=== PATIENT | female | born 1985 | race Caucasian/White ===

== ENCOUNTER 2018-12-16 08:49 | Day surgery (SDC) | payer OTHER ==
[2018-12-15 09:17] VITALS: BMI 31.8
--- NOTE | 2018-12-16 09:28 | HP ---
History & Physical Update - History History: No Change - Physical Physical: No Change - Assessment Assessment: No Change - Plan Plan: No Change (H & P done on 11/25/18)
[2018-12-16] MEDS ORDERED: LIDOCAINE HCL 1%, 10 MG/ML (20ML VIAL) ONE (09:36)
[2018-12-16] MEDS ORDERED: LIDOCAINE 1%-EPI 1:100,000 30 ML MDV IJ ONE (09:36)
[2018-12-16] MEDS ORDERED: BUPIVACAINE HCL/PF 0.5% (5MG/ML) 10 ML VIAL ONE (09:36)
[2018-12-16] MEDS ORDERED: PROPOFOL 20 ML ONE ×2 (09:51→10:07)
[2018-12-16] MEDS ORDERED: MIDAZOLAM HCL 2 MG/2 ML SINGLE DOSE VIAL ONE (09:51)
[2018-12-16] MEDS ORDERED: LIDOCAINE HCL/PF 2% SDV 5ML VIAL ONE (10:00)
[2018-12-16] MEDS ORDERED: LIDOCAINE 1%/EPI 1:100000 (50 ML MULTI DOSE VIAL) INF ONE ×2 (10:07)
[2018-12-16] MEDS ORDERED: BENZOIN TINCTURE SWABSTICK TP ONE (10:24)
[2018-12-16] MEDS ORDERED: PROMETHAZINE HCL 25 MG/1 ML VIAL IVPUSH PRN (10:35)
[2018-12-16] MEDS ORDERED: oxyCODONE HCL 5 MG TABLET PO PRN (10:35)
[2018-12-16] MEDS ORDERED: KETOROLAC TROMETHAMINE 30 MG/1 ML VIAL IVPUSH ONE (10:36)
--- NOTE | 2018-12-16 10:39 | OP ---
Operative Note - Note: Operative Date: 12/16/18 Pre-Operative Diagnosis: right upper back sebaceous cyst Operation: Excision of back cyst Findings: 1.5 cm sebaceous cyst Post-Operative Diagnosis: Same as Pre-op Surgeon: Clayton Arauz Anesthesia: MAC Specimens Removed: sebaceous cyst Estimated Blood Loss (mls): 1 Operative Report Dictated: Yes
[2018-12-16] MEDS ORDERED: LACTATED RINGERS SOLUTION 1,000 ML IV SCH (10:45)
[2018-12-16] MEDS ORDERED: KETOROLAC TROMETHAMINE 30 MG/1 ML VIAL ONE (11:03)
--- NOTE | 2018-12-16 11:37 | OP ---
DATE OF OPERATION: 12/16/2018 PROCEDURE: Excision biopsy of right upper back sebaceous cyst. PREOPERATIVE DIAGNOSIS: Right upper back sebaceous cyst. POSTOPERATIVE DIAGNOSIS: Right upper back sebaceous cyst. SURGEON: Clayton Arauz MD ANESTHESIA: Local with sedation. FINDINGS ON PROCEDURE: This is a 33-year-old female who presents with a few month history of a slowly growing cystic mass of the right upper back just above the scapula. On physical examination, patient has a 1.5-cm cystic mass of the said area. So, patient was advised excision biopsy of the mass of the cyst, and consent was obtained after discussing the risks, benefits, and alternatives of the procedure. DESCRIPTION OF PROCEDURE: Patient was brought to the operating room and placed in left lateral decubitus position. Intravenous sedation was given by the anesthesia team. The operative site was prepped and draped in the usual sterile fashion using lidocaine 1% with epinephrine, field block anesthesia was administered. A 2 x 0.5 cm elliptical incision was made using scalpel blade No. 15 with resection carried down to the deep dermis. Further resection using Metzenbaum scissors combined with Bovie cautery was done until the cystic mass together with the ellipse of skin was completely excised down to the subcutaneous layer. The wound was undermined to about 0.5 cm on each side. The wound was closed with interrupted Biosyn 4-0 sutures for the dermis and continuous Biosyn 4-0 suture for the subcuticular layer. The wound closure was reinforced with Steri-Strips and covered with sterile dressing. The patient was transferred to the post-anesthesia care unit in satisfactory condition. ESTIMATED BLOOD LOSS: About 1 mL. WOUND CLASS: Clean. Chinedu [id number]
[2018-12-16 14:09] VITALS: BP 117/71; PULSE 71; TEMP 97.8
--- NOTE | 2018-12-19 19:09 | PATH ---
Surgical Pathology Report Patient Name: JENNIFER ELLSWORTH [facility]. Rec. #: [id number] /Age/Gender: 1985 (Age: 33) / F Account: [id number] Location: [facility] SURGICAL Taken: 12/16/2018 Received: 12/16/2018 Reported: 12/19/2018 Physicians: Clayton Arauz M.D. Specimen(s) Received SEBACEOUS CYST RIGHT UPPER BACK Clinical History Cyst right upper back Final Diagnosis SEBACEOUS CYST, RIGHT UPPER BACK, EXCISION: EPIDERMAL INCLUSION CYST. Electronically Signed Aida Sims M.D. Gross Description Received in formalin labeled "sebaceous cyst right upper back," is a 1.0 x 0.7 x 0.7 cm intact cystic structure which is partially surfaced by a 1.0 x 0.3 cm walter, elliptical, unremarkable portion of skin. The cyst lumen contains walter sebaceous material. The specimen is trisected and entirely submitted in one cassette. /12/17/2018 saudi12/17/2018
== END 2018-12-16 12:30 | disposition home or self-care (01) ==
LOC: JASU-SURG 08:49
PROVIDERS: ATTEND Surgery
PROC: 0HB6XZX Excision of Back Skin, External Approach, Diagnostic (ICD-10-PCS; principal; 2018-12-16 09:30)
DX: L72.3 Sebaceous cyst (principal)
CPT/HCPCS: 84703; 88304-TC; 94760

== ENCOUNTER 2019-08-31 11:19 | Emergency (ER) | payer OTHER ==
[2019-08-31 11:24] VITALS: BP 130/69; PULSE 90; TEMP 98.4; BMI 29.9
[2019-08-31] MEDS ORDERED: guaiFENesin/D-METHORPHAN HB 10 ML UNIT-DOSE CUPS PO ONE (12:42)
[2019-08-31] MEDS ORDERED: IBUPROFEN 600 MG TABLET (FP) PO ONE ×2 (12:42→13:13)
--- NOTE | 2019-08-31 12:43 | PDOC ---
History of Present Illness - General Chief Complaint: Sore Throat Stated Complaint: SORE THROAT Time Seen by Provider: 08/31/19 11:28 History Source: Patient Exam Limitations: No Limitations Past History - Travel Traveled outside of the country in the last 30 days: No Close contact w/someone who was outside of country & ill: No - Past Medical History Allergies/Adverse Reactions: Allergies Allergy/AdvReac Type Severity Reaction Status Date / Time No Known Allergies Allergy Verified 08/31/19 11:24 Home Medications: Ambulatory Orders Acetaminophen [Tylenol] 650 mg PO QID PRN 06/27/18 Levothyroxine [Synthroid -] 125 mcg PO DAILY 06/27/18 Doxycycline Monohydrate [Mondoxyne Nl] 50 mg PO HS 12/15/18 Ibuprofen 800 mg PO TID PRN 12/15/18 Guaifenesin Dm [Robitussin Dm -] 10 ml PO Q6H #200 ml 08/31/19 Ibuprofen 600 mg PO Q6H #30 tablet 08/31/19 Anemia: No Asthma: No Cancer: No Cardiac Disorders: No CVA: No COPD: No CHF: No Dementia: No Diabetes: No GI Disorders: No Disorders: No HTN: No Hypercholesterolemia: No Liver Disease: No Seizures: No Thyroid Disease: Yes (hypo) - Surgical History Abdominal Surgery: No Appendectomy: No Cardiac Surgery: No Cholecystectomy: No Lung Surgery: No Neurologic Surgery: No Orthopedic Surgery: No - Immunization History Immunization Up to Date: Yes - Psycho Social/Smoking Cessation Hx Smoking Status: No Smoking History: Never smoked Have you smoked in the past 12 months: No Number of Cigarettes Smoked Daily: 0 Cigars Per Day: 0 Hx Alcohol Use: No Drug/Substance Use Hx: No Hx Substance Use Treatment: No Review of Systems - Review of Systems Able to Perform ROS?: Yes Comments:: 08/31/19 13:34 CONSTITUTIONAL: Absent: fever, chills, diaphoresis, generalized weakness, malaise, loss of appetite HEENT: Present: Sore throat. Absent: rhinorrhea, nasal congestion, throat pain, throat swelling, difficulty swallowing, mouth swelling, ear pain, eye pain, visual Changes CARDIOVASCULAR: Absent: chest pain, loss of consciousness, palpitations, irregular heart rate, peripheral edema RESPIRATORY: Present: Cough. Absent: cough, shortness of breath, dyspnea with exertion, orthopnea, wheezing, stridor, hemoptysis GASTROINTESTINAL: Absent: abdominal pain, abdominal distension, nausea, vomiting, diarrhea, constipation, melena, hematochezia SKIN: Absent: rash, itching, pallor NEUROLOGIC: Absent: headache, focal weakness or paresthesias, dizziness, unsteady gait, seizure, mental status changes, bladder or bowel incontinence PSYCHIATRIC: Absent: anxiety, depression, suicidal or homicidal ideation, hallucinations. Is the patient limited Afghan proficient: No *Physical Exam - Vital Signs Last Vital Signs Temp Pulse Resp BP Pulse Ox 98.4 F 90 18 130/69 100 08/31/19 11:21 08/31/19 11:21 08/31/19 11:21 08/31/19 11:21 08/31/19 11:21 - Physical Exam 08/31/19 13:36 GENERAL: Well developed, well nourished. Awake and alert. No acute distress. HEENT: Normocephalic, atraumatic. PERRLA, EOMI. No conjunctival pallor. Sclera are non- icteric. Moist mucous membranes. Oropharynx is erythematous. NECK: Supple. Full ROM. No JVD. Carotid pulses 2+ and symmetric, without bruits. No thyromegaly. No lymphadenopathy. CARDIOVASCULAR: Regular rate and rhythm. No murmurs, rubs, or gallops. Distal pulses are 2+ and symmetric. PULMONARY: No evidence of respiratory distress. Lungs clear to auscultation bilaterally. No wheezing, rales or rhonchi. ABDOMINAL: Soft. Non-tender. Non-distended. No rebound or guarding. No organomegaly. Normoactive bowel sounds. MUSCULOSKELETAL Normal range of motion at all joints. No bony deformities or tenderness. No CVA tenderness. EXTREMITIES: No cyanosis. No clubbing. No edema. No calf tenderness. SKIN: Warm and dry. Normal capillary refill. No rashes. No jaundice. NEUROLOGICAL: Alert, awake, appropriate. Cranial nerves 2-12 intact. No deficits to light touch and temperature in face, upper extremities and lower extremities. No motor deficits in the in face, upper extremities and lower extremities. Normoreflexic in the upper and lower extremities. Normal speech. Toes are down- going bilaterally. Gait is normal without ataxia. PSYCHIATRIC: Cooperative. Good eye contact. Appropriate mood and affect. Medical Decision Making - Medical Decision Making 08/31/19 13:38 Patient is 33-year-old female who presents to the ER for cough and sore throat for 2 days. She states that she has not taken any medication for symptoms. Denies fevers, chills, nausea, vomiting, diarrhea. A/P: URI On exam lungs are clear to auscultation bilaterally no wheezes rales or rhonchi. Flu and strep testing is negative Likely a common cold Discharge home with supportive relief Vital signs stable I discussed the physical exam findings, ancillary test results and final diagnoses with the patient. I answered all of the patient's questions. The patient was satisfied with the care received and felt comfortable with the discharge plan and treatment plan. The Patient agrees to follow up with the primary care physician/specialist within 24-72 hours. Return precautions were given. Discharge - Discharge Information Problems reviewed: Yes Clinical Impression/Diagnosis: Upper respiratory infection Qualifiers: URI type: unspecified viral URI Qualified Code(s): J06.9 - Acute upper respiratory infection, unspecified Condition: Stable Disposition: HOME - Admission No - Additional Discharge Information Prescriptions: Guaifenesin Dm [Robitussin Dm -] 10 ml PO Q6H #200 ml Ibuprofen 600 mg PO Q6H #30 tablet - Follow up/Referral Referrals: Vikash Cortez MD [Staff Physician] - - Patient Discharge Instructions Patient Printed Discharge Instructions: DI for Viral Upper Respiratory Infection -- Adult Additional Instructions: You have an upper respiratory infection, or the common cold. Your flu and strep testing was negative today. Please take Motrin 800 mg every 8 hours as needed for pain not to exceed 3000 mg a day. Drink plenty of fluids. Cough drops and warm tea may help your symptoms as well. Please follow up with her primary care doctor this week. Return to the emergency department if you have difficulty breathing, shortness of breath, worsening pain, nausea, vomiting or if you have any changes in your symptoms. - Post Discharge Activity
[2019-08-31] MEDS ORDERED: guaiFENesin/D-METHORPHAN HB 10 ML UNIT-DOSE CUPS ONE (13:14)
== END 2019-08-31 13:39 | disposition home or self-care (01) ==
LOC: JERFT 11:19
DX: J06.9 Acute upper respiratory infection, unspecified (principal); B97.89 Other viral agents as the cause of diseases classified elsewhere; E03.9 Hypothyroidism, unspecified
CPT/HCPCS: 87070; 87804; 87880; 99282-25

== ENCOUNTER 2019-10-21 16:42 | Emergency (ER) | payer OTHER ==
[2019-10-21 17:03] VITALS: BP 92/56; PULSE 95; TEMP 98.8; BMI 29.9
[2019-10-21] MEDS ORDERED: ACETAMINOPHEN 1000 MG/100 ML VIAL (NON FORMULARY) IVPB ONE (17:19)
[2019-10-21] MEDS ORDERED: ONDANSETRON 4 MG/2 ML VIAL IVPUSH ONE ×2 (17:19→19:39)
--- NOTE | 2019-10-21 17:34 | PDOC ---
History of Present Illness - History of Present Illness Initial Comments: 10/21/19 17:13 Patient is a 34y.o female with h/o hypothyroid c/o Nausea, vomiting, diarrhea, fever, bodyache since this morning. States woke up this morning with symptoms. Yesterday son had vomiting and diarrhea, now slightly improved but still continues to vomit so has brought the child here also for evaluation. Her pain is achy 8/10, continuous. Fever is subjective but took Motrin at 1 pm. Has not eaten all day. Also complains of pain on urination x1 day. States she is currently menstruating. PMD: Dr. Bartlett PMHX: As above PSOCHX: neg etoh, drug, cig ALL: NKDA GENERAL/CONSTITUTIONAL: [No fever or chills. No weakness. No weight change.] HEAD, EYES, EARS, NOSE AND THROAT: [No change in vision. No ear pain or discharge. No sore throat.] CARDIOVASCULAR: [No chest pain or shortness of breath.] RESPIRATORY: [No cough, wheezing, or hemoptysis.] GASTROINTESTINAL: [No nausea, vomiting, diarrhea or constipation. No rectal bleeding.] GENITOURINARY: [No dysuria, frequency, or change in urination.] MUSCULOSKELETAL: [No joint or muscle swelling or pain. No neck or back pain.] SKIN AND BREASTS: [No rash or easy bruising.] NEUROLOGIC: [No headache, vertigo, loss of consciousness, or loss of sensation.] PSYCHIATRIC: [No depression or anxiety.] ENDOCRINE: [No increased thirst. No abnormal weight change.] HEMATOLOGIC/LYMPHATIC: [No anemia, easy bleeding, or history of blood clots.] ALLERGIC/IMMUNOLOGIC: [No hives or skin allergy. No latex allergy.] GENERAL: [The patient is awake, alert, and fully oriented, in mild distress.] HEAD: [Normal with no signs of trauma.] EYES: [Pupils equal, round and reactive to light, extraocular movements intact, sclera anicteric, conjunctiva clear.] ENT: [Ears normal, nares patent, oropharynx clear without exudates. Dry mucous membranes.] NECK: [Normal range of motion, supple without lymphadenopathy, JVD, or masses.] LUNGS: [Breath sounds equal, clear to auscultation bilaterally. No wheezes, and no crackles.] HEART: [Regular rate and rhythm, normal S1 and S2 without murmur, rub.] ABDOMEN: [Soft, mild suprapubic tenderness, normoactive bowel sounds. No guarding, no rebound. No masses, (-) CVAT] EXTREMITIES: [Normal range of motion, no edema. No clubbing or cyanosis. No cords, erythema, or tenderness.] NEUROLOGICAL: [Cranial nerves II through XII grossly intact. Normal speech, normal gait.] PSYCH: [Normal mood, normal affect.] SKIN: [Warm, Dry, normal turgor, no rashes or lesions noted.] <Dalila Castro - Last Filed: 10/22/19 02:13> <Lizy Alarcon - Last Filed: 10/22/19 20:13> - General Chief Complaint: Vomiting/Diarrhea Stated Complaint: DIARRHEA/VOMITING Past History - Past Medical History Anemia: No Asthma: No Cancer: No Cardiac Disorders: No CVA: No COPD: No CHF: No Dementia: No Diabetes: No GI Disorders: No Disorders: No HTN: No Hypercholesterolemia: No Liver Disease: No Seizures: No Thyroid Disease: Yes (hypo) - Surgical History Abdominal Surgery: No Appendectomy: No Cardiac Surgery: No Cholecystectomy: No Lung Surgery: No Neurologic Surgery: No Orthopedic Surgery: No - Immunization History Immunization Up to Date: Yes - Psycho Social/Smoking Cessation Hx Smoking Status: No Smoking History: Never smoked Have you smoked in the past 12 months: No Number of Cigarettes Smoked Daily: 0 Cigars Per Day: 0 Hx Alcohol Use: No Drug/Substance Use Hx: No Hx Substance Use Treatment: No <Dalila Castro - Last Filed: 10/22/19 02:13> <Lizy Alarcon - Last Filed: 10/22/19 20:13> - Past Medical History Allergies/Adverse Reactions: Allergies Allergy/AdvReac Type Severity Reaction Status Date / Time No Known Allergies Allergy Verified 10/21/19 17:01 Home Medications: Ambulatory Orders Acetaminophen [Tylenol] 650 mg PO QID PRN 06/27/18 Levothyroxine [Synthroid -] 125 mcg PO DAILY 06/27/18 RX: Doxycycline Monohydrate [Mondoxyne Nl] 50 mg PO HS 12/15/18 RX: Ibuprofen 800 mg PO TID PRN 12/15/18 Guaifenesin Dm [Robitussin Dm -] 10 ml PO Q6H #200 ml 08/31/19 RX: Ibuprofen 600 mg PO Q6H #30 tablet 08/31/19 Cephalexin [Keflex] 500 mg PO TID #20 capsule 10/21/19 Ibuprofen [Motrin -] 600 mg PO QID #28 tablet 10/21/19 Ondansetron HCl [Zofran] 4 mg PO TID #7 tablet 10/21/19 *Physical Exam - Vital Signs Last Vital Signs Temp Pulse Resp BP Pulse Ox 98.8 F 95 H 18 92/56 L 100 10/21/19 17:01 10/21/19 17:01 10/21/19 17:01 10/21/19 17:01 10/21/19 17:01 <Dalila Castro - Last Filed: 10/22/19 02:13> - Vital Signs Last Vital Signs Temp Pulse Resp BP Pulse Ox 98.8 F 95 H 18 92/56 L 100 10/21/19 17:01 10/21/19 17:01 10/21/19 17:01 10/21/19 17:01 10/21/19 17:01 <Lizy Alarcon - Last Filed: 10/22/19 20:13> ED Treatment Course - LABORATORY CBC & Chemistry Diagram: 10/21/19 18:05 10/21/19 18:05 <Dalila Castro - Last Filed: 10/22/19 02:13> - LABORATORY CBC & Chemistry Diagram: 10/21/19 18:05 10/21/19 18:05 - ADDITIONAL ORDERS Additional order review: Laboratory Results 10/21/19 10/21/19 18:05 18:05 Sodium 138 Potassium 3.5 Chloride 106 Carbon Dioxide 24 Anion Gap 8 BUN 22.3 H Creatinine 0.6 Est GFR (CKD-EPI)AfAm 136.87 Est GFR (CKD-EPI)NonAf 118.09 Random Glucose 91 Calcium 8.5 Total Bilirubin 1.5 H AST 14 L ALT 20 Alkaline Phosphatase 76 Total Protein 7.1 Albumin 3.6 Urine Color [place] Urine Appearance Turbid Urine pH 5.0 Ur Specific [place] 1.038 H Urine Protein 3+ H Urine Glucose (UA) Negative Urine Ketones Negative Urine Blood 3+ H Urine Nitrite Negative Urine Bilirubin 2+ H Urine Urobilinogen 0.2 Ur Leukocyte Esterase 2+ H Urine WBC (Auto) 290 Urine RBC (Auto) 579 Urine Casts (Auto) 10 U Epithel Cells (Auto) 2.4 10/21/19 18:05 RBC 4.33 MCV 75.1 L MCHC 33.6 RDW 16.4 H MPV 9.4 Neutrophils % 82.9 H D Lymphocytes % 11.0 D Monocytes % 5.9 Eosinophils % 0.1 D Basophils % 0.1 - Medications Given in the ED: ED Medications Discontinued Medications Generic Name Dose Route Start Last Admin Trade Name Edson PRN Reason Stop Dose Admin Acetaminophen 1,000 mg 10/21/19 17:19 10/21/19 18:15 Ofirmev Injection - IVPB 10/21/19 17:20 1,000 mg ONCE ONE Administration Ondansetron HCl 4 mg 10/21/19 17:19 10/21/19 18:15 Zofran Injection IVPUSH 10/21/19 17:20 4 mg ONCE ONE Administration <Lizy Alarcon - Last Filed: 10/22/19 20:13> Medical Decision Making - Medical Decision Making 10/21/19 17:13 Patient is a 34y.o female with h/o hypothyroid c/o Nausea, vomiting, diarrhea, fever, bodyache since this morning. States woke up this morning with symptoms. Yesterday son had vomiting and diarrhea, now slightly improved but still continues to vomit so has brought the child here also for evaluation. Her pain is achy 8/10, continuous. Fever is subjective but took Motrin at 1 pm. Has not eaten all day. Also complains of pain on urination x1 day. States she is currently menstruating. Symptoms consistent with viral illness possible UTI. Labs IV fluids, Zofran, Tylenol Reassess, p.o. hydrate when stable. 10/21/19 20:17 Labs reviewed noted to have WBC on urine. Patient reassessed still complains of feeling symptomatic. Patient written for fluids, Zofran, Rocephin IV Reassess 10/21/19 21:29 Patient feels improved given a p.o. challenge and is tolerating p.o. I discussed the physical exam findings, ancillary test results and final diagnoses with the patient. I answered all of the patient's questions. The patient was satisfied with the care received and felt comfortable with the discharge plan and treatment plan. The Patient agrees to follow up with the primary care physician within 24-72 hours. <Dalila Castro - Last Filed: 10/22/19 02:13> - Medical Decision Making Vital Signs Temp Pulse Resp BP Pulse Ox 98.8 F 95 H 18 92/56 L 100 10/21/19 17:01 10/21/19 17:01 10/21/19 17:01 10/21/19 17:01 10/21/19 17:01 The patient was seen and evaluated in conjunction with midlevel provider under my direct supervision, ancillary studies were reviewed. I agree with the plan as outlined with MARY shepherd. HPI, workup/dispo as outlined. VS reviewed, soft bp , no tachy, afebrile here, normal sats. labs and lytes, UA, reassess UA with UTI, will treat with keflex x 1 week course, f/u cultures DC stable condition, return precautions 10/21/19 18:52 10/21/19 18:53 <Lizy Alarcon - Last Filed: 10/22/19 20:13> Discharge - Discharge Information Problems reviewed: Yes <Dalila Castro - Last Filed: 10/22/19 02:13> <Lizy Alarcon - Last Filed: 10/22/19 20:13> - Discharge Information Clinical Impression/Diagnosis: Nausea vomiting and diarrhea UTI (urinary tract infection) Qualifiers: Urinary tract infection type: site unspecified Hematuria presence: without hematuria Qualified Code(s): N39.0 - Urinary tract infection, site not specified Condition: Stable Disposition: HOME - Additional Discharge Information Prescriptions: Cephalexin [Keflex] 500 mg PO TID #20 capsule Ibuprofen [Motrin -] 600 mg PO QID #28 tablet Ondansetron HCl [Zofran] 4 mg PO TID #7 tablet - Patient Discharge Instructions Patient Printed Discharge Instructions: Urinary Tract Infection, DI for Diarrhea and Traveler's Diarrhea -- Adult, DI for Vomiting -- Adult Additional Instructions: Your Discharge Instructions: You must call primary care physician within 24 hours to arrange follow-up. Return to the Emergency Department with any new, persistent or worsening symptoms, for fever, chills, SOB, dizziness or any other concerning changes that may occur.
[2019-10-21] MEDS ORDERED: ONDANSETRON 4 MG/2 ML VIAL ONE ×2 (18:12→20:30)
[2019-10-21] MEDS ORDERED: ACETAMINOPHEN INJECTION 100 ML IVPB ONE (18:12)
[2019-10-21 18:22] LABS: BASO % 0.1 % (0-2.0); EOS % 0.1 % (0-4.5); HEMATOCRIT 32.5 % (32.4-45.2); HEMOGLOBIN 10.9 GM/dL (10.7-15.3); MCH 25.2 pg (25.7-33.7); MCHC 33.6 g/dl (32.0-36.0); MEAN CELL VOLUME 75.1 fl (80-96); MEAN PLT VOLUME 9.4 fl (7.5-11.1); MONO % 5.9 % (3.8-10.2); NEUT % 82.9 % (42.8-82.8); PLATELET COUNT 261 K/MM3 (134-434); RBC 4.33 M/mm3 (3.60-5.2); RDW 16.4 % (11.6-15.6); WHITE BLOOD COUNT 7.9 K/mm3 (4.0-10.0)
[2019-10-21 18:24] LABS: EPI CELLS 2.4 /HPF (0-5/HPF); HYALINE CASTS 10 /lpf (0-8); URINE APPEARANCE TURBID; URINE BILIRUBIN 2+ (NEGATIVE); URINE COLOR ORANGE; URINE GLUCOSE (UA) NEGATIVE (NEGATIVE); URINE KETONE NEGATIVE (NEGATIVE); URINE LEUK ESTERASE 2+ (NEGATIVE); URINE NITRITE NEGATIVE (NEGATIVE); URINE PROTEIN 3+ (NEGATIVE); URINE RBC 579 /hpf (0-4); URINE UROBILINOGEN 0.2 mg/dL (0.2-1.0); URINE WBC 290 /hpf (0-5)
[2019-10-21 18:51] LABS: ALBUMIN 3.6 g/dl (3.4-5.0); BILIRUBIN,TOTAL 1.5 mg/dL (0.2-1); BLOOD UREA NITROGEN 22.3 mg/dL (7-18); CALCIUM 8.5 mg/dL (8.5-10.1); CREATININE 0.6 mg/dL (0.55-1.3); POTASSIUM 3.5 mmol/L (3.5-5.1); TOT PROT 7.1 g/dl (6.4-8.2)
[2019-10-21] MEDS ORDERED: KETOROLAC TROMETHAMINE 30 MG/1 ML VIAL IVPUSH ONE (19:37)
[2019-10-21] MEDS ORDERED: CEFTRIAXONE 1,000 MG in DEXTROSE 5%-WATER - 50 ML IVPB ONE (19:37)
[2019-10-21] MEDS ORDERED: SODIUM CHLORIDE 0.9% 500 ML INFUS.BAG IV ONE (19:38)
[2019-10-21 20:02] LABS: URINE BACTERIA 0 /hpf (NEGATIVE)
[2019-10-21] MEDS ORDERED: KETOROLAC TROMETHAMINE 30 MG/1 ML VIAL ONE (20:30)
[2019-10-21] MEDS ORDERED: CEFTRIAXONE 1 GM/50 ML BAG ONE (20:30)
== END 2019-10-21 22:16 | disposition home or self-care (01) ==
LOC: JER 16:42
PROC: 3E03329 Introduction of Other Anti-infective into Peripheral Vein, Percutaneous Approach (ICD-10-PCS; principal; 2019-10-21)
PROC: 3E033NZ Introduction of Analgesics, Hypnotics, Sedatives into Peripheral Vein, Percutaneous Approach (ICD-10-PCS; 2019-10-21)
PROC: 3E033GC Introduction of Other Therapeutic Substance into Peripheral Vein, Percutaneous Approach (ICD-10-PCS; 2019-10-21)
PROC: 3E0333Z Introduction of Anti-inflammatory into Peripheral Vein, Percutaneous Approach (ICD-10-PCS; 2019-10-21)
DX: N39.0 Urinary tract infection, site not specified (principal); R11.2 Nausea with vomiting, unspecified; R19.7 Diarrhea, unspecified; E03.9 Hypothyroidism, unspecified
CPT/HCPCS: 36415; 80053; 81003; 85025; 87804; 96365; 96375; 96376; 99284-25; J0131

== ENCOUNTER 2024-01-04 21:45 | Emergency (ER) | payer OTHER ==
[2024-01-04 21:51] VITALS: TEMP 98.2; BMI 30.7
[2024-01-04 22:59] LABS: BASO % 0.7 % (0-2.0); EOS % 0.3 % (0-4.5); HEMOGLOBIN 10.7 GM/dL (10.7-15.3); MCH 23.7 pg (25.7-33.7); MCHC 32.6 g/dl (32.0-36.0); MEAN CELL VOLUME 72.9 fl (80-96); MEAN PLT VOLUME 8.5 fl (7.5-11.1); MONO % 16.7 % (3.8-10.2); NEUT % 65.3 % (42.8-82.8); PLATELET COUNT 249 10^3/uL (134-434); RBC 4.52 M/mm3 (3.60-5.2); RDW 16.8 % (11.6-15.6); WHITE BLOOD COUNT 6.8 K/mm3 (4.0-10.0)
[2024-01-04 23:03] LABS: EPI CELLS 4 /uL (0-25.1); HYALINE CASTS 0 /uL (0-3.1); PH,URINE 6.5 (5.0-8.0); URINE APPEARANCE CLEAR; URINE BACTERIA 12 /uL (0-1359); URINE BILIRUBIN NEGATIVE (NEGATIVE); URINE COLOR YELLOW; URINE GLUCOSE (UA) NEGATIVE (NEGATIVE); URINE KETONE NEGATIVE (NEGATIVE); URINE LEUK ESTERASE NEGATIVE (NEGATIVE); URINE NITRITE NEGATIVE (NEGATIVE); URINE PROTEIN NEGATIVE (NEGATIVE); URINE RBC 20 /uL (0-23.9); URINE UROBILINOGEN 0.2 mg/dL (0.2-1.0); URINE WBC 3 /uL (0-25.8)
[2024-01-04] MEDS ORDERED: ACETAMINOPHEN INJECTION 100 ML IVPB ONE (23:08)
[2024-01-04] MEDS: SODIUM CHLORIDE 1,000 ML IV STA (23:12)
[2024-01-04] MEDS: ACETAMINOPHEN 1000 MG/100 ML BAG IVPB ONE (23:12)
[2024-01-04 23:16] LABS: POTASSIUM 3.7 mmol/L (3.5-5.1)
[2024-01-04 23:18] LABS: CALCIUM 9.4 mg/dL (8.5-10.1)
[2024-01-04 23:19] LABS: ALBUMIN 3.7 g/dl (3.4-5.0); BLOOD UREA NITROGEN 12.9 mg/dL (7-18)
[2024-01-04 23:22] LABS: CREATININE 0.7 mg/dL (0.55-1.3)
[2024-01-04 23:24] LABS: TOT PROT 7.6 g/dl (6.4-8.2)
[2024-01-04 23:41] VITALS: BP 114/70
[2024-01-04] MEDS ORDERED: CEPHALEXIN MONOHYDRATE 500 MG CAPSULE (UD) ONE (23:49)
[2024-01-04] MEDS: CEPHALEXIN MONOHYDRATE 500 MG CAPSULE (UD) PO ONE (23:51)
[2024-01-04 23:55] VITALS: PULSE 82; RESP 18
== END 2024-01-05 00:05 | disposition home or self-care (01) ==
LOC: JERFT 21:45
PROC: 3E033NZ Introduction of Analgesics, Hypnotics, Sedatives into Peripheral Vein, Percutaneous Approach (ICD-10-PCS; principal; 2024-01-04)
PROC: 3E0337Z Introduction of Electrolytic and Water Balance Substance into Peripheral Vein, Percutaneous Approach (ICD-10-PCS; 2024-01-04)
DX: R52 Pain, unspecified (principal); M54.50 Low back pain, unspecified; R10.30 Lower abdominal pain, unspecified; R50.9 Fever, unspecified; R35.0 Frequency of micturition; N30.00 Acute cystitis without hematuria; Z20.822 Contact with and (suspected) exposure to COVID-19
CPT/HCPCS: 0241U-QW; 36415; 80053; 81003; 84703; 85025; 87086; 99284-25; J0131

== ENCOUNTER 2024-01-20 08:52 | Emergency (ER) | payer OTHER ==
[2024-01-20 09:00] VITALS: BP 107/64; PULSE 90; RESP 17; TEMP 98.2; BMI 30.7
[2024-01-20] MEDS ORDERED: IBUPROFEN 400 MG TABLET (FP) PO ONE (09:54)
[2024-01-20] MEDS ORDERED: ACETAMINOPHEN 500 MG TABLET (FP) ONE ×2 (09:54→09:56)
[2024-01-20] MEDS: ACETAMINOPHEN 500 MG TABLET (FP) PO ONE (09:56)
[2024-01-20] MEDS: IBUPROFEN 400 MG TABLET (FP) PO ONE (09:57)
[2024-01-20] MEDS ORDERED: AMOX TR/POT CLAV 875MG/125MG TABLETS (FP) ONE (11:19)
[2024-01-20] MEDS: AMOX TR/POT CLAV 875MG/125MG TABLETS (FP) PO ONE (11:31)
== END 2024-01-20 11:32 | disposition home or self-care (01) ==
LOC: JERFT 08:52
DX: J32.9 Chronic sinusitis, unspecified (principal); R09.81 Nasal congestion; R05.9 Cough, unspecified; M79.10 Myalgia, unspecified site; R51.9 Headache, unspecified; Z20.822 Contact with and (suspected) exposure to COVID-19
CPT/HCPCS: 0241U-QW; 87651; 99283-25